=== PATIENT | female | born 1970 | race Caucasian/White ===

== ENCOUNTER 2017-02-08 11:34 | Day surgery (SDC) | payer OTHER ==
[~2017-02-08 11:34] MED LIST: LIDOCAINE 1% 30 ML SDV ONE; LIDOCAINE 2% 5 ML SDV ONE; SILVER NITRATE APPLICATOR 1 APPL TP ONE
[2017-02-08] MEDS ORDERED: MIDAZOLAM 2 MG/2 ML VIAL ONE (12:45)
[2017-02-08] MEDS ORDERED: LIDOCAINE 2% 5 ML SDV ONE (12:48)
[2017-02-08] MEDS ORDERED: PROPOFOL 200 MG/20 ML VIAL ONE (12:49)
[2017-02-08] MEDS ORDERED: fentaNYL 100 MCG/2 ML INJ ONE (12:49)
[2017-02-08] MEDS ORDERED: DEXAMETHASONE 4 MG/ML VIAL ONE (13:05)
[2017-02-08] MEDS ORDERED: KETOROLAC 30 MG/1 ML SDV ONE (13:38)
--- NOTE | 2017-02-08 13:56 | GOP ---
[f rep st] OPERATIVE REPORT DATE OF OPERATION: 02/08/2017 SURGEON: Harper Santizo MD SUCTION OPERATOR: None. ANESTHESIA: Monitored anesthesia care. PREOPERATIVE DIAGNOSIS: Thickened endometrial lining. POSTOPERATIVE DIAGNOSIS: Thickened endometrial lining. PROCEDURE PERFORMED: Hysteroscopy with dilation and curettage. FINDINGS: Proliferative endometrium, otherwise normal uterine cavity. SPECIMENS: Endometrial curettings. INDICATIONS: The patient is a 46-year-old female who is having irregular menses , had pelvic ultrasound, which showed a remarkably thickened endometrium of 2.4 cm, and we were unable to obtain a cervical biopsy. Endometrial biopsy with adequate tissue sampling in the office recommended proceeding to hysteroscopy and D and C, which the patient agreed to. DESCRIPTION OF PROCEDURE: The patient was taken to the operating room where she was prepped and draped in normal sterile fashion in the high dorsal lithotomy position. A surgical time-out was performed verifying the patient's name, date of , planned procedure, and site. A bivalve speculum was placed in the patient's vagina. The anterior aspect of the cervix was grasped with a single-tooth tenaculum. The cervix was dilated to 6 mm. The hysteroscope was placed into the uterine cavity. The uterine cavity was normal in appearance. There was no fibroids or polyps. She did have proliferative endometrium that was removed with a TruClear blade. Fluid deficit was 70 mL. The hysteroscope was removed. The single-tooth tenaculum was removed. Hemostasis was obtained with silver nitrate. All counts were correct x2. The patient was stable to recovery room. COMPLICATIONS: None. OUTCOME: Stable to recovery room. /[id number]/MODL MTDD
== END 2017-02-08 14:45 | disposition home health service (06) ==
LOC: FSGY 11:34
PROVIDERS: ATTEND Obstetrics & Gynecology
PROC: 0UDB8ZX Extraction of Endometrium, Via Natural or Artificial Opening Endoscopic, Diagnostic (ICD-10-PCS; principal; 2017-02-08 12:45)
DX: N92.6 Irregular menstruation, unspecified (principal)
CPT/HCPCS: 58558; C1782; J1100; J1885; J2250; J2704; J3010

== ENCOUNTER 2017-02-24 21:40 | Emergency (ER) | payer OTHER ==
[2017-02-24 21:46] VITALS: TEMP 98.2
[2017-02-24] MEDS ORDERED: fentaNYL 100 MCG/2 ML INJ IVP ONE ×3 (21:52→23:52)
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
[2017-02-24] MEDS ORDERED: HYDROmorphONE/DILAUDID 1 MG/ML SYR IVP ONE (22:25)
[2017-02-24] MEDS ORDERED: HYDROmorphONE/DILAUDID 1 MG/ML SYR ONE (22:26)
[2017-02-24] MEDS ORDERED: PROPOFOL 200 MG/20 ML VIAL ONE (23:17)
[2017-02-24] MEDS ORDERED: fentaNYL 100 MCG/2 ML INJ ONE (23:23)
[2017-02-24] MEDS ORDERED: PROPOFOL 200 MG/20 ML VIAL IVP ONE ×5 (23:35→23:50)
[2017-02-25 00:31] VITALS: RESP 12
[2017-02-25 00:49] VITALS: BP 112/61; PULSE 81; O2SAT 96
[2017-02-25] MEDS ORDERED: OXYCODONE/APAP 5/325MG PREPACK#4 BTL TAKEHOME ONE (00:50)
== END 2017-02-25 01:03 | disposition home or self-care (01) ==
DX: S52.372A Galeazzi's fracture of left radius, initial encounter for closed fracture (principal); V18.4XXA Pedal cycle driver injured in noncollision transport accident in traffic accident, initial encounter; Y92.410 Unspecified street and highway as the place of occurrence of the external cause; Y93.55 Activity, bike riding
CPT/HCPCS: 96374; J1170; J2704; J3010